=== PATIENT | male | born 1975 | race Hispanic/Latino ===

== ENCOUNTER 2022-06-22 02:23 | Emergency (ER) | payer OTHER ==
[~2022-06-22] VITALS: Ht 188 cm; Wt 78.0 kg
[2022-06-22 03:48] VITALS: BP 145/88
[2022-06-22] MEDS ORDERED: QUETIAPINE FUMARATE 100 MG TAB PO SCH (04:00)
== END 2022-06-22 03:52 | disposition home or self-care (01) ==
LOC: EDH 02:23
DX: F25.9 Schizoaffective disorder, unspecified (principal); F15.10 Other stimulant abuse, uncomplicated; F32.A Depression, unspecified; F41.9 Anxiety disorder, unspecified
CPT/HCPCS: 99281

== ENCOUNTER 2022-11-04 02:50 | Emergency (ER) | payer OTHER ==
[~2022-11-04] VITALS: Ht 188 cm; Wt 85.7 kg
[2022-11-04 02:54] VITALS: BP 136/79
[2022-11-04] MEDS ORDERED: 0.9%NACL 1000ML 1,000 ML IV ONE (03:16)
[2022-11-04] MEDS ORDERED: ONDANSETRON 4MG INJ ONE (03:16)
[2022-11-04] MEDS ORDERED: ONDANSETRON 4MG INJ IVP ONE (03:30)
[2022-11-04] MEDS ORDERED: 0.9%NACL 1000ML 1,000 ML IV SCH (03:30)
== END 2022-11-04 03:40 | disposition left against medical advice (07) ==
LOC: EDH 02:50
DX: R11.0 Nausea (principal); Z53.21 Procedure and treatment not carried out due to patient leaving prior to being seen by health care provider
CPT/HCPCS: J7030; J2405